=== PATIENT | male | born 2005 | race Caucasian/White ===

== ENCOUNTER 2025-08-21 20:31 | Emergency (ER) | payer OTHER, SELFPAY ==
[2025-08-21 20:32] VITALS: BP 123/87
[2025-08-21 22:00] VITALS: BMI 20.2
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
== END 2025-08-21 23:58 | disposition home or self-care (01) ==
LOC: EMR 20:31
PROVIDERS: EMERGENCY PHYSICIAN Emergency Medicine; FAMILY PHYSICIAN Family Medicine
DX: M54.6 Pain in thoracic spine (principal); V43.52XA Car driver injured in collision with other type car in traffic accident, initial encounter; Y92.410 Unspecified street and highway as the place of occurrence of the external cause
CPT/HCPCS: 99284; 70450; 72072